=== PATIENT | male | born 1955 ===

== ENCOUNTER 2020-01-02 12:27 | Emergency (ER) | payer BC, OTHER ==
--- NOTE | 2020-01-02 12:54 | EDM.PDOC ---
ED HPI GENERAL MEDICAL PROBLEM - General Chief Complaint: ENT Problem Stated Complaint: SORE THROAT, COUGH, EARACHE Time Seen by Provider: 01/02/20 12:53 Source of Information: Reports: Patient History Limitations: Reports: No Limitations - History of Present Illness INITIAL COMMENTS - FREE TEXT/NARRATIVE: HISTORY AND PHYSICAL: History of present illness: Patient is a 64-year-old male presents to the ED with complaint of sore throat x 1 week. He reports a slight headache between in eyes, ear pain, and nasal congestion. He denies chest pain, shortness of breath, difficulty swallowing or breathing, trismus, fevers, chills, head injury, visual changes. Denies recent travel or sick contacts. Review of systems: As per history of present illness and below otherwise all systems reviewed and negative. Past medical history: As per history of present illness and as reviewed below otherwise noncontributory. Surgical history: As per history of present illness and as reviewed below otherwise noncontributory. Social history: No reported history of drug or alcohol abuse. Family history: As per history of present illness and as reviewed below otherwise noncontributory. Physical exam: General: Patient sitting comfortably in no acute distress and nontoxic appearing HEENT: TMs clear bilaterall. Frontal sinus tenderness to palpation. Oropharynx is erythematous without exudate. Uvula is midline, no soft palate asymmetry. Atraumatic, normocephalic, pupils reactive, negative for conjunctival pallor or scleral icterus, mucous membranes moist, throat clear, neck supple, nontender, trachea midline. No meningeal signs. Lungs: speaking clearly without breathlessness, no wheezing or stridor, no accessory muscle use or respiratory distress Neuro: Awake, alert, oriented. Cranial nerves II through XII unremarkable. Cerebellum unremarkable. Motor and sensory unremarkable throughout. Exam nonfocal. Notes: Diagnostics: none Therapeutics: none Prescriptions: Augmentin Impression: Acute sinusitis Plan: Take antibiotic as instructed Follow-up with primary care provider Return to ED as needed as discussed Definitive disposition and diagnosis as appropriate pending reevaluation and review of above. head, ears, throat Pain Score (Numeric/FACES): 5 - Related Data Allergies Allergy/AdvReac Type Severity Reaction Status Date / Time No Known Allergies Allergy Verified 01/02/20 12:45 Home Meds: Home Meds Amoxicillin/Clavulanate K [Augmentin 400-57 MG/5 ML] 10 ml PO BID 7 Days #140 bottle 01/02/20 [Rx] Past Medical History Genitourinary History: Reports: Renal Calculus - Infectious Disease History Infectious Disease History: Reports: Chicken Pox, Measles, Mumps - Past Surgical History GI Surgical History: Reports: Esophageal Dilatation Social & Family History - Family History Family Medical History: Noncontributory - Tobacco Use Smoking Status *Q: Never Smoker - Caffeine Use Caffeine Use: Reports: Soda - Recreational Drug Use Recreational Drug Use: No ED ROS ENT - Review of Systems Review Of Systems: Comprehensive ROS is negative, except as noted in HPI. ED EXAM, ENT - Physical Exam Exam: See Below (see dictation) Course - Vital Signs Last Recorded V/S: Last Vital Signs Temp 97.0 F 01/02/20 12:46 Pulse 70 01/02/20 12:46 Resp 17 01/02/20 12:46 BP 132/91 H 01/02/20 12:46 Pulse Ox 95 01/02/20 12:46 Departure - Departure Time of Disposition: 13:06 Disposition: Home, Self-Care 01 Condition: Good Clinical Impression: Acute sinusitis - Discharge Information Prescriptions: Amoxicillin/Clavulanate K [Augmentin 400-57 MG/5 ML] 10 ml PO BID 7 Days #140 bottle Instructions: Sinusitis, Adult, [id number] Referrals: PCP,None [Primary Care Provider] - Forms: ED Department Discharge Additional Instructions: The following information is given to patients seen in the emergency department who are being discharged to home. This information is to outline your options for follow-up care. We provide all patients seen in our emergency department with a follow-up referral. The need for follow-up, as well as the timing and circumstances, are variable depending upon the specifics of your emergency department visit. If you don't have a primary care physician on staff, we will provide you with a referral. We always advise you to contact your personal physician following an emergency department visit to inform them of the circumstance of the visit and for follow-up with them and/or the need for any referrals to a consulting specialist. The emergency department will also refer you to a specialist when appropriate. This referral assures that you have the opportunity for follow-up care with a specialist. All of these measure are taken in an effort to provide you with optimal care, which includes your follow-up. Under all circumstances we always encourage you to contact your private physician who remains a resource for coordinating your care. When calling for follow-up care, please make the office aware that this follow-up is from your recent emergency room visit. If for any reason you are refused follow-up, please contact the [facility] at and asked to speak to the emergency department charge nurse. [facility] [address] [place] [id number] [address] Take antibiotic as instructed Follow-up with primary care provider Return to ED as needed as discussed Sepsis Event Note - Evaluation Sepsis Screening Result: No Definite Risk - Focused Exam Vital Signs: Vital Signs Temp Pulse Resp BP Pulse Ox 01/02/20 12:46 97.0 F 70 17 132/91 H 95 Date Exam was Performed: 01/02/20 Time Exam was Performed: 13:42
== END 2020-01-02 13:30 | disposition home or self-care (01) ==
LOC: MW.ED 12:27
DX: J01.90 Acute sinusitis, unspecified (principal)
CPT/HCPCS: 99282; 99283